=== PATIENT | male | born 1965 ===

== ENCOUNTER 2016-11-08 11:34 | Inpatient (IN) | payer MEDICAID ==
[2016-11-08 11:38] VITALS: BMI 23.1
--- NOTE | 2016-11-08 12:11 | C.PDOC ---
History Of Present Illness 51 y/o male presents to emergency department requesting detox for heroin. Notes last use was yesterday. Patient with history of HIV and reports he is compliant with medications. Denies any other complaints. Time Seen by Provider: 11/08/16 11:45 Chief Complaint (Nursing): Substance Abuse History Per: Patient History/Exam Limitations: no limitations Onset/Duration Of Symptoms: Persistent Current Symptoms Are (Timing): Still Present Modifying Factor(s): Narcotics Associated Symptoms: denies: Suicidal Thoughts, Suicidal Plan Recent travel outside of the [place]: No Past Medical History Reviewed: Historical Data, Nursing Documentation, Vital Signs Vital Signs: Last Vital Signs Temp 98.0 F 11/08/16 11:37 Pulse 87 11/08/16 11:37 Resp 18 11/08/16 11:37 BP 149/89 11/08/16 11:37 Pulse Ox 98 11/08/16 13:24 - Medical History PMH: HIV, Post Traumatic Stress Disorder Family History: States: Unknown Family Hx - Social History Hx Alcohol Use: No Hx Substance Use: Yes - Immunization History Hx Tetanus Toxoid Vaccination: No Hx Influenza Vaccination: No Hx Pneumococcal Vaccination: No Review Of Systems Except As Marked, All Systems Reviewed And Found Negative. Constitutional: Negative for: Fever, Chills Cardiovascular: Negative for: Chest Pain Respiratory: Negative for: Cough, Shortness of Breath Gastrointestinal: Negative for: Nausea, Vomiting, Abdominal Pain Skin: Negative for: Rash Psych: Negative for: Suicidal ideation, Withdrawal Physical Exam - Physical Exam Appears: Non-toxic, No Acute Distress Skin: Normal Color, Warm, Dry Head: Atraumatic, Normacephalic Chest: Symmetrical Cardiovascular: Rhythm Regular Respiratory: No Rales, No Rhonchi, No Wheezing Gastrointestinal/Abdominal: Soft, No Tenderness, No Guarding, No Rebound Back: Normal Inspection Extremity: Normal ROM, Capillary Refill (< 2 sec. ) Neurological/Psych: Oriented x3, Normal Speech, Normal Cognition ED Course And Treatment - Laboratory Results Result Diagrams: 11/08/16 12:42 11/08/16 12:42 O2 Sat by Pulse Oximetry: 98 (RA) Pulse Ox Interpretation: Normal Medical Decision Making Medical Decision Making: Labs ordered. Crisis aware. Patient medically cleared. Disposition - Disposition Disposition: HOSPITALIZED Disposition Time: 14:04 Condition: STABLE - Clinical Impression Clinical Impression: Opiate use, Substance addiction - Scribe Statement The provider has reviewed the documentation as recorded by the Scribe Joe Alejo All medical record entries made by the Scribe were at my direction and personally dictated by me. I have reviewed the chart and agree that the record accurately reflects my personal performance of the history, physical exam, medical decision making, and the department course for this patient. I have also personally directed, reviewed, and agree with the discharge instructions and disposition. Decision To Admit - Pt Status Changed To: Hospital Disposition Of: Inpatient - Admit Certification Admit to Inpatient:: After my assessment, the patient will require hospitalization for at least two midnights. This is because of the severity of symptoms shown, intensity of services needed, and/or the medical risk in this patient being treated as an outpatient. - InPatient: Physician Admission Certification: I certify that this patient requires 2 or more midnights of care for the following reason:: pt needs detox. - . Bed Request Type: Detox Admitting Physician: Kym Moser Patient Diagnosis: Opiate use, Substance addiction
[2016-11-08 12:42] LABS: RBC URINE < 1 /hpf (0-3); URINE BILIRUBIN NEGATIVE (NEGATIVE); URINE BLOOD NEGATIVE (NEGATIVE); URINE COLOR Yellow (YELLOW); URINE GLUCOSE (UA) NORMAL (Normal); URINE KETONE NEGATIVE (NEGATIVE); URINE LEUKOCYTE ESTERASE NEG Leu/uL (Negative); URINE PROTEIN NEGATIVE (NEGATIVE); WBC URINE 1 /hpf (0-5)
[2016-11-08 12:51] LABS: BASO % 0.6 % (0.0-2.0); EOS % 0.8 % (0.0-4.0); HEMATOCRIT 40.5 % (35.0-51.0); LYMPH # 1.4 K/uL (1.0-4.3); LYMPH % 26.6 % (20.0-40.0); MEAN CELL VOLUME 86.5 fL (80.0-94.0); MEAN CORPUSCULAR HEMOGLOBIN 27.6 pg (27.0-31.0); MEAN CORPUSCULAR HGB CONC 31.9 g/dL (33.0-37.0); MEAN PLATELET VOLUME 10.5 fL (7.2-11.7); MONO # 0.4 K/uL (0.0-0.8); MONO % 8.4 % (0.0-10.0); NRBC % 0.1 % (0.0-2.0); RED CELL DISTRIBUTION WIDTH 14.3 % (11.5-14.5); WHITE BLOOD COUNT 5.1 K/uL (4.8-10.8)
[2016-11-08 12:54] LABS: CHLORIDE 96 mmol/L (98-107)
[2016-11-08 12:55] LABS: POTASSIUM 3.6 mmol/L (3.6-5.2); SODIUM 135 mmol/L (132-148)
[2016-11-08 12:57] LABS: ALKALINE PHOSPHATASE 70 U/L (38-126); ALT/SGPT 23 U/L (21-72); AST/SGOT 27 U/L (17-59); BILIRUBIN,TOTAL 0.7 mg/dL (0.2-1.3); BLOOD UREA NITROGEN 6 mg/dL (9-20); CARBON DIOXIDE 31 mmol/L (22-30); GFR AFRICAN-AMERICAN > 60; TOTAL PROTEIN 7.8 g/dL (6.3-8.3)
[2016-11-08 12:58] LABS: ALCOHOL SERUM < 10 mg/dl (0-10); CALCIUM 8.4 mg/dl (8.6-10.4); GLUCOSE,RANDOM 107 mg/dL (75-110)
--- NOTE | 2016-11-08 13:10 | RAD ---
HISTORY: pysch COMPARISON: No prior. FINDINGS: LUNGS: Suspect minor bibasilar atelectasis left minor biapical pleural thickening. PLEURA: No significant pleural effusion identified, no pneumothorax apparent. CARDIOVASCULAR: Normal. OSSEOUS STRUCTURES: Minor multilevel degenerative spondylosis of thoracic spine. There is also a mild centered at the mid to lower thoracic region versus side bending to the left. VISUALIZED UPPER ABDOMEN: Normal. OTHER FINDINGS: None. IMPRESSION: Suspect minor bibasilar atelectasis left greater than right
[2016-11-08] MEDS ORDERED: Aluminum Hydroxide/Magnesium Hydroxide Susp (30 mL) PO PRN (14:33)
[2016-11-08] MEDS ORDERED: Buprenorphine Hydrochloride 2 mg SL ONE ×2 (15:00→16:00)
[2016-11-09] MEDS ORDERED: Buprenorphine Hydrochloride 2 mg SL ONE (10:48)
--- NOTE | 2016-11-09 22:39 | PCM.PSYCH ---
Initial Psychiatric Evaluation - Initial Psychiatric Evaluation Type of Admission: Voluntary Legal Status: Capacity Chief Complaint (in patient's own words): "Getting clean" History of Present Illness and Precipitating Events: The patient is seen, chart reviewed and case discussed. 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 The patient uses 10 bags of heroine IV daily. He started using 21 years ago and his longest sobriety was 2 years when he went to long-term. He drinks 5-6 beers and smokes half pack per day. Patient denies recent cocaine use however admits to using cocaine in the past. This is his first detox admission. Currently, the patient admits to having withdrawal symptoms such as heat and cold intolerance, body aches, runny nose and chills. He denies any significant psych symptoms but mild depressive symptoms. He wants to go back to [facility] after discharge Past psych history: Depression Family psych history: Denies Medical history: HIV Current Medications: Active Medications Generic Name Dose Route Start Last Admin Trade Name Freq PRN Reason Stop Dose Admin Al Hydrox/Mg Hydrox/Simethicone 30 ml 11/08/16 14:33 Maalox 30 Ml PO TID PRN Indigestion / Heartburn Clonidine HCl 0.1 mg 11/08/16 14:33 Catapres PO Q8 PRN COWS Score More or Equal to 5 Hydroxyzine HCl 25 mg 11/08/16 14:34 11/09/16 21:59 Atarax PO 25 mg Q4H PRN Administration Anxiety Ibuprofen 600 mg 11/08/16 14:34 Motrin Tab PO Q6H PRN Pain, moderate (4-7) Loperamide HCl 2 mg 11/08/16 14:33 Imodium PO Q8 PRN Diarrhea Mirtazapine 30 mg 11/09/16 22:00 11/09/16 21:59 Remeron PO 30 mg HS SYLVIA Administration Nicotine 1 patch 11/09/16 20:00 11/09/16 20:12 Nicoderm Cq TD Not Given DAILY SYLVIA Ondansetron HCl 4 mg 11/08/16 14:33 Zofran Tab PO Q8 PRN Nausea/Vomiting Trazodone HCl 100 mg 11/08/16 14:34 Desyrel PO HS PRN Insomnia Past Psychiatric History - Past Psychiatric History Previous Treatment History: None Pertinent Medical Hx (Current Medical&Sleep Prob, Allergies): Allergies Allergy/AdvReac Type Severity Reaction Status Date / Time No Known Allergies Allergy Verified 11/08/16 11:37 Elviteg/Nicolle/Emtric/Tenofo Dis [Stribild Tablet] 1 tab PO DAILY 11/08/16 Review of Systems - Psychiatric Psychiatric: Abnormal Sleep Pattern, Anxiety. absent: Hallucinations, Homicidal Ideation, Suicidal Ideation Mental Status Examination - Personal Presentation Personal Presentation: Looks older than stated age - Affect Affect: Constricted - Motor Activity Motor Activity: Calm - Reliability in Providing Information Reliability in Providing Information: Good - Speech Speech: Organized - Mood Mood: Anxious - Formal Thought Process Formal Thought Process: No Impairment - Cognitive Functions Orientation: Person, Place, Situation, Time Sensorium: Alert Attention/Concentration: Attentive Abstract Thinking: [place] Estimate of Intelligence: Average Judgement: Intact, as evidence by: Insight regarding need for hospitalization Memory: Recent intact, as evidence by: Ability to recall events of the day, Remote intact, as evidenced by: Abilit to recall sig. life events - Risk Risk: Withdrawal, Diminished functioning - Strength & Assets Inventory Strength & Assets Inventory: Cooperative - Limitations Limitations: Living alone DSM 5 DX - DSM 5 DSM 5 Diagnosis: primary: Opioid withdrawal Opioid use disorder, severe Alcohol use disorder, mild Tobacco use disorder, moderate Depressive disorder unspecified - Recommended/Plan of Treatment Treatment Recommendations and Plan of Treatment: Subutex detox As needed medications Attend groups and activities [place] and CBT Support and psychoeducation Monitor alcohol withdrawal symptoms [place] for abstinence Remeron for depression CBT and support 32 minutes Projected ELOS: 4 days Prognosis: good with treatment Discharge Plan and Discharge Criteria: no withdrawal symptoms Refer to Agustin - Smoking Cessation Smoking Cessation Initiated: Yes
[2016-11-10] MEDS ORDERED: Buprenorphine Hydrochloride 2 mg SL SCH (10:00)
[2016-11-10] MEDS: Buprenorphine Hydrochloride 2 mg SL SCH (10:11)
[2016-11-10] MEDS ORDERED: STRIBILD PO SCH (13:00)
[2016-11-10] MEDS: STRIBILD PO SCH (13:13)
--- NOTE | 2016-11-10 14:53 | PCM.PYCHPN ---
Psychiatric Progress Note - Psychiatric Progress Note Patient seen today, length of contact: 16 min Patient Chief Complaint: "Better" Problems Identified/Issues Discussed: The pt is seen, chart reviewed, case discussed with staff. The pt is compliant with medications and reports no side-effects. Symptoms are improving but needs more time to stabilize. After care discussed, support and psychoeducation given. Medication Change: Yes (detox changes daily) Medical Record Reviewed: Yes Mental Status Examination - Cognitive Function Orientation: Person, Place, Situation, Time Memory: Intact Attention: WNL Concentration: Poor Association: WNL Fund of Knowledge: Poor - Mood Mood: Anxious - Affect Affect: Constricted - Speech Speech: Appropriate - Formal Thought Process Formal Thought Process: No Impairment - Suicidal Ideation Suicidal Ideation: No - Homicidal Ideation Homicidal Ideation: No Goal/Treatment Plan - Goal/Treatment Plan Need for Continued Stay: Discharge may exacerbated symptoms, Severe functional impairment Progress Toward Problem(s) and Goals/Treatment Plan: Continue medications as described in intake Support and psychoeducation daily Attend groups and activities daily After care planning: Agustin boyd
[2016-11-11] MEDS: Buprenorphine Hydrochloride 2 mg SL SCH (09:27)
[2016-11-11] MEDS: STRIBILD PO SCH (09:27)
--- NOTE | 2016-11-12 02:02 | PCM.PYCHPN ---
Psychiatric Progress Note - Psychiatric Progress Note Patient seen today, length of contact: 16 min Patient Chief Complaint: I hurt all over Problems Identified/Issues Discussed: withdrawal symptoms chills and sweats, achy body. rhinorrhea Post Acute withdrawal syndrome aftercare Agustin boyd Medical Problems: nothing acute Diagnostic Results: reviewed DSM 5 Symptoms Update: withdrawal sxs of vomiting, diarrhea Medication Change: Yes Medical Record Reviewed: Yes Mental Status Examination - Cognitive Function Orientation: Person, Place, Situation, Time Memory: Intact Attention: WNL Concentration: WNL Association: WNL Fund of Knowledge: WNL - Mood Mood: Anxious - Affect Affect: Constricted - Speech Speech: Appropriate - Formal Thought Process Formal Thought Process: No Impairment - Suicidal Ideation Suicidal Ideation: No - Homicidal Ideation Homicidal Ideation: No Goal/Treatment Plan - Goal/Treatment Plan Need for Continued Stay: Discharge may exacerbated symptoms Progress Toward Problem(s) and Goals/Treatment Plan: opioid use disorder- CBT ND supportive psychotherapy increaed understanding how substance abuse affects all aspects of one's life opioid withdrawal may be exacerbated by pt's decreased immunity Estimated Date of D/C: 11/13/16 - Smoking Cessation Smoking Cessation Initiated: No
[2016-11-12] MEDS: Buprenorphine Hydrochloride 2 mg SL SCH (10:16)
[2016-11-12] MEDS: STRIBILD PO SCH (10:23)
[2016-11-13 06:25] VITALS: RESP 18
[2016-11-13 08:22] VITALS: BP 149/91; PULSE 88; TEMP 97.5; O2SAT 99
--- NOTE | 2016-11-13 08:53 | PCM.PYCHDC ---
Mental Status Examination - Mental Status Examination Orientation: Person, Place, Situation, Time Memory: Intact Mood: Anxious Affect: Constricted Speech: Appropriate Attention: WNL Concentration: WNL Association: WNL Fund of Knowledge: Poor Formal Thought Process: No Impairment Suicidal Ideation: No Current Homicidal Ideation?: No Discharge Summary - Discharge Note Reason for Hospitalization: Heroin detox Consultations:: List each consultation separately and include: 1. Reason for request. 2. Findings. 3. Follow-up Summary of Hospital Course include:: 1. Description of specific treatment plan utilized for patients during their course of treatmen. 2. Summarize the time- course for resolution of acute symptoms and/or regressed behaviors. 3. Describe issues identified and worked on during hospitalization. 4. Describe medication utilized. 5. Describe medical problems identified and treated. 6. Reassessment of suicide risk Summary of Hospital Course: The pt was admitted and started on treatment with psychotherapy, support, psychoeducation and medications. MO and CBT used. The pt attended groups and activities, as well as milieu therapy. All the risks and benefits of medications are discussed and the patient understood and agreed. After care discussed with the patient. He went to [facility]. He was quiet and cooperative, pleasant - Final Diagnosis (DSM 5) Condition upon Discharge: STABLE DSM 5: primary: Opioid withdrawal Opioid use disorder, severe Alcohol use disorder, mild Tobacco use disorder, moderate Depressive disorder unspecified Disposition: REHAB FACILITY/REHAB UNIT Follow-up Treatment Plan: Continue below medications after discharge. Follow after care plan as discussed. Use relapse prevention skills Return to ER or call 911 if suicidal, homicidal or symptoms relapse. Stay away from stress, alcohol and drugs. See primary doctor once a year. Prescriptions/Medication Reconciliation: Elviteg/Nicolle/Emtric/Tenofo Dis [Stribild Tablet] 1 tab PO DAILY #30 Mirtazapine [Remeron] 30 mg PO HS #30 tab traZODone [Desyrel] 100 mg PO HS PRN #30 tab PRN Reason: Insomnia - Smoking Cessation Smoking Cessation Medication prescribed: No - Antipsychotic Medications Pt discharged on 2 or more routine antipsychotic medications: No
[2016-11-13] MEDS: STRIBILD PO SCH (09:14)
== END 2016-11-13 09:15 | disposition home or self-care (01) | DRG 715 ==
LOC: C.ER 11:34 → C.7D 14:03
PROVIDERS: ADMIT Psychiatry & Neurology Psychiatry; ATTEND Psychiatry & Neurology Psychiatry
PROC: HZ2ZZZZ Detoxification Services for Substance Abuse Treatment (ICD-10-PCS; principal; 2016-11-09)
PROC: HZ32ZZZ Individual Counseling for Substance Abuse Treatment, Cognitive-Behavioral (ICD-10-PCS; 2016-11-09)
PROC: HZ42ZZZ Group Counseling for Substance Abuse Treatment, Cognitive-Behavioral (ICD-10-PCS; 2016-11-09)
PROC: HZ59ZZZ Individual Psychotherapy for Substance Abuse Treatment, Supportive (ICD-10-PCS; 2016-11-09)
DX: F11.23 Opioid dependence with withdrawal (principal); Z21 Asymptomatic human immunodeficiency virus [HIV] infection status; F43.10 Post-traumatic stress disorder, unspecified